=== PATIENT | female | born 1980 | race Caucasian/White ===

== ENCOUNTER 2017-03-09 21:49 | Emergency (ER) | payer MEDICARE, MEDICAID ==
--- NOTE | ~2017-03-09 | ER ---
ADMIT: 03/09/2017 RM/LOC: ER [facility] MR#: [id number] [place], [place] [id number] KATIE BAJWA [address] [address] Emergency Room Report SEX: F AGE: 36 : 1980 DATE: 03/09/2017 A 36-year-old female, comes to the Emergency Department with complaints of abdominal pain, diarrhea, and vomiting. She states she did use some old delong grease to cook and looking sick with the above complaints shortly thereafter. See T-sheet for remainder of history and physical. Her CBC is within normal parameters. Electrolytes are significant for potassium of 3.4, and a glucose of 120. She is diagnosed with gastroenteritis. Encouraged to use Pepto- Bismol, discard her delong grease, and to follow up with the primary doctor this week if not better. DIAGNOSIS: Gastroenteritis. Anselmo Noble MD/ chris JOB #: [id number] CC: Duong Sorensen MD, Attending Physician Mack Thomas MD, Family Physician
== END 2017-03-09 23:58 | disposition home or self-care (01) ==
LOC: ER 21:49
DX: K52.9 Noninfective gastroenteritis and colitis, unspecified (principal); F31.9 Bipolar disorder, unspecified; Z79.899 Other long term (current) drug therapy; Z88.6 Allergy status to analgesic agent; Z88.8 Allergy status to other drugs, medicaments and biological substances